=== PATIENT | female | born 2000 | race Caucasian/White ===

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

== ENCOUNTER 2023-04-08 09:46 | Inpatient (IN) ==
[2023-04-08] MEDS ORDERED: OXYTOCIN 30 UNITS/500 ML BAG IV PRN ×2 (10:18→10:26)
[2023-04-08] MEDS ORDERED: LIDOCAINE 1% LOCAL 20 ML VIAL INFIL PRN (10:18)
--- NOTE | 2023-04-08 10:32 | History & Physical Report ---
Date of Service April 08, 2023 History of Present Illness Chief Complaint: hola olivier Primary Care Provider: Abigail Leon MD 22 F P0000 at term with SROM clear fluid at 0630 this morning. GBS is negative. No contractions. Allergies Allergy/AdvReac Type Severity Reaction Status Date / Time No Known Allergies Allergy Unverified 04/08/23 10:05 Home Medications Medication Instructions Recorded Confirmed Type vits no.124-ferrous fum 1 tab PO HS 04/08/23 04/08/23 History 27 mg iron-folic acid 800 mcg tablet ( Vitamin) Patient History Surgical History History of tonsillectomy and adenoidectomy Hx of appendectomy Family History Other No known health problems Social History Smoking Status: Never smoker Hx Alcohol Use: No Hx Substance Use: Yes Last Used Substance Other:: 1 week ago; used 3 times a week Preferred Language: Faroese Communication Ability: Effective Food Packer Required: No Beliefs That Will Affect Care: None marital status: Single Current Living Situation: Significant Other Other Information That Helps Us Care for You: No Feels Safe at Home: Yes Safety Concerns: Feels Safe At This Time Assistive Devices: None OB History primip MACHINE HEEL SEAT FITTER History neg Review of Systems All systems reviewed & are unremarkable except as noted in HPI & below Physical Exam Constitutional: WD/WN, vitals as above Eyes: PERRL, conjunctivae normal, anicteric sclerae Respiratory: normal respiratory effort, lungs clear to auscultation Cardiovascular: RRR, no murmur, no edema Gastrointestinal (Abdomen): normal bowel sounds, soft, nontender, no hepat osplenomegaly Musculoskeletal: Extremities: extremities normal to inspection Skin: no rashes, warm and dry Neurologic: patellar DTR's 2+ bilat, sensation intact Psychiatric: A+Ox3, euthymic affect Genitourinary: no vaginal lesions, no adnexal mass OB Exam Abdomen: + fundal height, + vertex and + estimated weight (7-8 lbs.) Manual OB Exam: + cervical dilation 2 cm, + cervical effacement 60%, + station -2 and + amniotic fluid clear OB Exam Monitor Tracing: + external FHT monitor used, + external uterine monitor used, + category I and + normal FHT variability Results & Data Vital Signs (Past 12 Hours) Vital Signs Pulse BP 04/08/23 10:02 93 H 111/66 Code Status & VTE Plan VTE Prophylaxis Plan VTE Prophylaxis will be ordered: No Monitoring External Monitor Cat 1
[2023-04-08 10:58] LABS: Hematocrit (blood only) 37.8 % (37.0-47.0); Hemoglobin 13.3 g/dl (12.0-16.0); Mean Corpuscular Hemoglobin 33.3 pg (25.0-34.0); Mean Corpuscular Hgb Conc 35.2 g/dL (32.0-36.0); Mean Corpuscular Volume 94.5 fL (80.0-100.0); Mean Platelet Volume 9.8 fL (9.4-12.4); Platelet Count 222 K/uL (130-400); RDW Coefficient of Variation 13.1 % (11.5-14.5); RDW Standard Deviation 45.3 fL (36.4-46.3); White Blood Count 8.37 K/ul (4.8-10.8)
[2023-04-08] MEDS: LACTATED RINGER'S 1,000 ML IV PRN ×3 (11:12→19:45)
[2023-04-08 11:19] LABS: Amphetamines+Metham, Urine Neg (Neg); Barbiturates, Urine Neg (Neg); Benzodiazepine, Urine Neg (Neg); Cocaine, Urine Neg (Neg); MDMA (Ecstacy), Urine Neg (Neg); Methadone, Urine Neg (Neg); Opiate, Urine Neg (Neg); Phencyclidine, Urine Neg (Neg)
[2023-04-08] MEDS ORDERED: fentaNYL citrate PF 100 MCG/2 ML VIAL ONE (14:37)
[2023-04-08] MEDS ORDERED: LIDOCAINE 2%/EPINEPHRINE 1:200,000 20 ML PF ONE (14:38)
[2023-04-08] MEDS ORDERED: fentaNYL 2MCG/ML ROPIVACAINE 1.25MG/ML 100 ML BAG EPI ONE (14:38)
[2023-04-08] MEDS ORDERED: SODIUM CHLORIDE 0.9% PF INJ 10 ML VIAL ONE (14:38)
[2023-04-08] MEDS ORDERED: ePHEDrine sulfate 50 MG/ML AMP ONE (14:38)
[2023-04-08] MEDS ORDERED: BUPIVACAINE 0.25% PF 30 ML VIAL ONE (14:38)
--- NOTE | 2023-04-08 15:07 | Anesthesiology Consultation ---
Date of Service April 08, 2023 Assessment & Plan (1) Encounter for pre-operative examination: Chart Review Chart Review: Acceptable Risk for Labor Epidural History Height/Weight Height: 5 ft 5 in Weight: 88.904 kg Allergies Allergy/AdvReac Type Severity Reaction Status Date / Time No Known Allergies Allergy Unverified 04/08/23 10:05 Medications Home Medications Medication Instructions Recorded Confirmed Last Taken vits no.124-ferrous fum 1 tab PO HS 04/08/23 04/08/23 04/07/23 21:00 27 mg iron-folic acid 800 mcg tablet ( Vitamin) Active Medications Generic Name Dose Route Start Last Admin Trade Name Freq PRN Reason Stop Dose Admin Lactated Ringer's 1,000 mls @ 125 mls/hr 04/08/23 10:18 04/08/23 14:32 Lr IV 04/10/23 10:17 999 mls/hr .Q8H PRN Infusion L&D Protocol Protocol Oxytocin 30 units in 500 mls @ 11 mls/hr 04/08/23 10:26 04/08/23 14:00 Pitocin IV 04/10/23 10:25 0.66 units/hr .Q24H PRN 11 mls/hr Labor Induction/Augmentation Titration Protocol 0.66 UNITS/HR Past Medical History Medical History (Updated 04/08/23 @ 15:07 by Aneudy Cm MD) No pertinent past medical history Past Family History Family History Other No known health problems Past Surgical History Surgical History History of tonsillectomy and adenoidectomy Hx of appendectomy Social History Smoking Status: Never smoker Hx Alcohol Use: No Hx Substance Use: Yes substance use type: marijuana Last Used Substance Other:: 1 week ago; used 3 times a week Physical Exam Vital Signs Last Vital Signs Temp 36.9 C 04/08/23 14:52 Pulse 64 04/08/23 15:02 Resp 18 04/08/23 14:52 BP 130/86 04/08/23 14:52 Pulse Ox 99 04/08/23 15:02 Testing Laboratory Results 04/08/23 10:36
[2023-04-08] MEDS ORDERED: LIDOCAINE 2%/EPINEPHRINE 1:200,000 20 ML PF EPI STA (15:28)
[2023-04-08] MEDS ORDERED: LIDOCAINE 2% MPF LOCAL 5 ML VIAL EPI PRN (15:28)
[2023-04-08] MEDS ORDERED: SODIUM CHLORIDE 0.9% PF INJ 10 ML VIAL EPI STA (15:28)
[2023-04-08] MEDS ORDERED: ROPIVACAINE 0.5% PF 5 MG/ML 20 ML VIAL EPI PRN (15:28)
[2023-04-08] MEDS ORDERED: BUPIVACAINE 0.25% PF 30 ML VIAL EPI STA (15:28)
[2023-04-08] MEDS ORDERED: BUPIVACAINE 0.25% PF 30 ML VIAL EPI PRN (15:28)
[2023-04-08] MEDS ORDERED: NALOXONE HCL 0.4 MG/1 ML VIAL/CARP IV PRN (15:28)
[2023-04-08] MEDS ORDERED: SODIUM CHLORIDE 0.9% PF INJ 10 ML VIAL EPI PRN (15:28)
[2023-04-08] MEDS ORDERED: fentaNYL citrate PF 100 MCG/2 ML VIAL EPI STA (15:28)
[2023-04-08] MEDS ORDERED: NALOXONE HCL 1 MG in SODIUM CHLORIDE 0.9% 1000ML 1,000 ML IV PRN (15:28)
[2023-04-08] MEDS ORDERED: ePHEDrine sulfate 50 MG/ML AMP IV PRN (15:28)
[2023-04-08] MEDS ORDERED: fentaNYL citrate PF 100 MCG/2 ML VIAL EPI PRN (15:28)
[2023-04-08] MEDS: ONDANSETRON INJ 2 MG/ML 2 ML VIAL IV PRN (18:08)
[2023-04-08] MEDS: fentaNYL 2MCG/ML ROPIVACAINE 1.25MG/ML 100 ML BAG EPI PRN (23:35)
[2023-04-09] MEDS: LACTATED RINGER'S 1,000 ML IV PRN ×2 (00:26→08:31)
[2023-04-09] MEDS: ONDANSETRON INJ 2 MG/ML 2 ML VIAL IV PRN (01:11)
[2023-04-09] MEDS ORDERED: NURSING L&D Epidural Breakthrough Pain Update ONE (01:48)
[2023-04-09] MEDS: fentaNYL 2MCG/ML ROPIVACAINE 1.25MG/ML 100 ML BAG EPI PRN (05:33)
--- NOTE | 2023-04-09 10:09 | Delivery Summary ---
Vaginal Delivery Summary Date of Service April 09, 2023 Vaginal Delivery Summary live male SARAY over intact perineum with delayed cord clamping and Apgars 8/9 weight pending. Cord blood obtained followed by spontaneous delivery of intact placenta. Small right side vaginal tear near the introitus repaired with 3/0 Vicryl suture. EBL 150 ml. Final sponge, needle and instrument count are correct. Mom and baby stable.
[2023-04-09] MEDS ORDERED: HYDROCORTISONE ACETATE 25 MG SUPP PR PRN (10:20)
[2023-04-09] MEDS ORDERED: DIPHTHERIA/TETANUS/PERTUSSIS Vaccine (Tdap, Age 7+yrs) 0.5mL SYR/VL IM ONE (10:20)
[2023-04-09] MEDS ORDERED: bisacodyL 10 MG SUPP PR PRN (10:20)
[2023-04-09] MEDS ORDERED: BENZOCAINE 20% SPRY 85 APPLN/85 GM CAN EXT PRN (10:20)
[2023-04-09] MEDS ORDERED: OXYTOCIN 30 UNITS/500 ML BAG IV PRN (10:20)
[2023-04-09] MEDS ORDERED: ACETAMINOPHEN 325 MG TAB PO PRN (10:20)
--- NOTE | 2023-04-09 11:04 | Anesthesia Procedure Note ---
Date of Service April 09, 2023 Anesthesia Post Epidural Note Vital Signs Vital Signs: Temp Pulse Resp BP Pulse Ox 36.8 C 89 18 137/63 96 04/09/23 07:15 04/09/23 11:03 04/09/23 07:15 04/09/23 11:03 04/09/23 09:48 Pain Intensity Abdomen: Pain Intensity: 9 Notes Mental Status: alert / awake / arousable Nausea / Vomiting: adequately controlled Pain: adequately controlled Airway Patency, RR, SpO2: stable & adequate BP & HR: stable & adequate Hydration State: stable & adequate Neuraxial Anesthesia: was administered and sensory block is resolving Anesthetic Complications: no major complications apparent and Pt Satisfied with anesthetic care Epidural: Removed without complications and With tip intact
[2023-04-09] MEDS: IBUPROFEN 600 MG TAB PO PRN ×2 (14:46→19:19)
[2023-04-09] MEDS: DOCUSATE SODIUM 100 MG CAP PO SCH (20:29)
[2023-04-09] MEDS: PRENATAL VITAMIN 1 TAB PO SCH (21:00)
[2023-04-10] MEDS: IBUPROFEN 600 MG TAB PO PRN ×4 (02:27→20:51)
[2023-04-10 06:38] LABS: Hematocrit (blood only) 33.8 % (37.0-47.0); Hemoglobin 11.6 g/dl (12.0-16.0); Mean Corpuscular Hgb Conc 34.3 g/dL (32.0-36.0); Mean Corpuscular Volume 96.3 fL (80.0-100.0); Mean Platelet Volume 10.2 fL (9.4-12.4); Platelet Count 186 K/uL (130-400); RDW Coefficient of Variation 13.4 % (11.5-14.5); RDW Standard Deviation 47.5 fL (36.4-46.3); Red Blood Count 3.51 M/uL (4.20-5.40); White Blood Count 10.24 K/ul (4.8-10.8)
--- NOTE | 2023-04-10 08:09 | Obstetrical Progress Note ---
Date of Service April 10, 2023 Assessment & Plan (1) Normal course: Continue with routine care Nurses and seo consultant to help patient with baby's latch may need to nipple shield Anticipate discharge home tomorrow (2) Mother currently breast-feeding: Breast-feeding education given at bedside Subjective Ambulation: ambulating normally Voiding: no voiding problems Passing Gas:: No Diet Tolerance:: regular diet Lochia:: Moderate Feeding Type:: breast feeding Current Pain Level(1-10): 0 Baby is having issues with latch Ministerio any other problems Physical Exam Constitutional WD/WN, vitals as above Respiratory normal respiratory effort, lungs clear to auscultation Cardiovascular RRR, no murmur, no edema Gastrointestinal (Abdomen) normal bowel sounds, soft, nontender, no hepatosplenomegaly Results & Data Vital Signs (Past 12 Hours) Vital Signs Temp Pulse Resp BP Pulse Ox O2 Del Method 04/10/23 02:30 36.9 C 72 16 109/68 100 Room Air 04/09/23 23:24 36.8 C 79 20 121/67 99 Room Air Laboratory Results Laboratory Results WBC 10.24 K/ul (4.8-10.8) 04/10/23 06:09 RBC 3.51 M/uL (4.20-5.40) L 04/10/23 06:09 Hgb 11.6 g/dl (12.0-16.0) L 04/10/23 06:09 Hct 33.8 % (37.0-47.0) L 04/10/23 06:09 MCV 96.3 fL (80.0-100.0) 04/10/23 06:09 MCH 33.0 pg (25.0-34.0) 04/10/23 06:09 MCHC 34.3 g/dL (32.0-36.0) 04/10/23 06:09 RDW Std Deviation 47.5 fL (36.4-46.3) H 04/10/23 06:09 RDW Coeff of Anastasiya 13.4 % (11.5-14.5) 04/10/23 06:09 Plt Count 186 K/uL (130-400) 04/10/23 06:09 MPV 10.2 fL (9.4-12.4) 04/10/23 06:09 Urine Opiates Screen Neg (Neg) 04/08/23 Unknown Ur Methadone, Qual Neg (Neg) 04/08/23 Unknown Urine Barbiturates Neg (Neg) 04/08/23 Unknown Ur Phencyclidine (PCP) Neg (Neg) 04/08/23 Unknown U Amphetamin/Meth Scrn Neg (Neg) 04/08/23 Unknown MDMA (Ecstasy) Screen Neg (Neg) 04/08/23 Unknown U Benzodiazepines Scrn Neg (Neg) 04/08/23 Unknown Ur Cocaine Metabolite Neg (Neg) 04/08/23 Unknown U Marijuana (THC) Screen Pos (Neg) H 04/08/23 Unknown
[2023-04-10] MEDS: DOCUSATE SODIUM 100 MG CAP PO SCH ×2 (08:39→20:51)
[2023-04-10] MEDS: FERROUS SULFATE 325 MG TAB PO SCH (08:39)
[2023-04-10] MEDS: PRENATAL VITAMIN 1 TAB PO SCH ×2 (08:39→21:35)
[2023-04-10 08:57] LABS: Marijuana Quant, GCMS Urine >5000 ng/mL (<5)
[2023-04-10] MEDS ORDERED: bisacodyL 5 MG TABEC PO SCH (20:00)
[2023-04-11] MEDS: IBUPROFEN 600 MG TAB PO PRN ×2 (03:12→07:40)
[2023-04-11 07:22] LABS: Hematocrit (blood only) 33.8 % (37.0-47.0); Hemoglobin 11.7 g/dl (12.0-16.0)
[2023-04-11] MEDS: DOCUSATE SODIUM 100 MG CAP PO SCH (07:39)
[2023-04-11] MEDS: FERROUS SULFATE 325 MG TAB PO SCH (07:39)
[2023-04-11] MEDS: PRENATAL VITAMIN 1 TAB PO SCH (07:40)
--- NOTE | 2023-04-11 10:03 | Obstetrical Progress Note ---
Date of Service April 11, 2023 Assessment & Plan (1) Normal course: s/P VD Day #2 Pt doing well Subjective Ambulation: ambulating normally Voiding: no voiding problems Passing Gas:: Yes Diet Tolerance:: regular diet Lochia:: Small Feeding Type:: breast feeding Review of Systems All systems reviewed & are unremarkable except as noted in HPI & below Physical Exam Constitutional WD/WN, vitals as above well developed and well nourished Eyes PERRL, conjunctivae normal, anicteric sclerae Neck trachea midline, no thyromegaly Respiratory normal respiratory effort, lungs clear to auscultation Auscultation: no crackles, no rales and no wheezes Cardiovascular RRR, no murmur, no edema Gastrointestinal (Abdomen) normal bowel sounds, soft, nontender, no hepatosplenomegaly Uterus is below umbilicus Musculoskeletal no cyanosis or clubbing, extremities motor strength 5/5 Skin no rashes, warm and dry Neurologic patellar DTR's 2+ bilat, sensation intact Psychiatric A+Ox3, euthymic affect Genitourinary normal external appearance Results & Data Vital Signs (Past 12 Hours) Vital Signs Temp Pulse Resp BP Pulse Ox O2 Del Method 04/11/23 08:00 36.4 C L 73 16 120/78 98 Room Air 04/11/23 00:19 36.8 C 71 16 116/72 98 Room Air
== END 2023-04-11 11:19 | disposition home or self-care (01) | DRG 807 ==
LOC: OPB 09:46 → 4S1 09:48 → 4E2 04-09 12:33